=== PATIENT | male | born 1965 | race Caucasian/White ===

== ENCOUNTER 2023-07-30 09:08 | Inpatient (IN) | payer OTHER ==
[~2023-07-30] VITALS: Ht 172.7 cm; Wt 80.7 kg
[2023-07-30 09:24] VITALS: BP 163/104; PULSE 100; RESP 20; TEMP 98.1; O2SAT 99
[2023-07-30 11:18] LABS: BASOPHILS % (AUTO) 0.5 % (0.0-2.0); EOSINOPHILS # (AUTO) 0.2 K/uL (0-0.4); EOSINOPHILS % (AUTO) 1.4 % (0.0-4.0); HEMATOCRIT 41.5 % (36-52); HEMOGLOBIN 14.7 g/dL (12.0-18.0); LYMPHOCYTES # (AUTO) 2.1 K/uL (2.0-11.5); LYMPHOCYTES % (AUTO) 19.5 % (20.5-51.1); MEAN CORPUSCULAR HEMOGLOBIN 31 pg (27-31); MEAN CORPUSCULAR HGB CONC 36 g/dL (33-37); MONOCYTES # (AUTO) 0.5 K/uL (0.8-1.0); MONOCYTES % (AUTO) 4.7 % (1.7-9.3); NEUTROPHILS # (AUTO) 8.1 K/uL (1.8-7.7); NEUTROPHILS % (AUTO) 73.9 % (42.2-75.2); PLATELET COUNT (AUTO) 171 K/uL (140-450); RED BLOOD CELL COUNT(AUTO) 4.71 MIL/uL (4.20-6.10); RED CELL DISTRIBUTION WIDTH 14.8 % (11.6-13.7); WHITE BLOOD COUNT (AUTO) 10.9 K/uL (4.8-10.8)
[2023-07-30 11:29] LABS: ANION GAP 13.8 (8-16); CALCIUM 9.1 mg/dL (8.5-10.1); CARBON DIOXIDE 24.7 mmol/L (21-32); CHLORIDE 102 mmol/L (98-107); CREATININE 0.8 mg/dL (0.6-1.3); GFR ARICAN-AMERICAN 127 mL/min (>90); GFR NON ARICAN-AMERICAN 105 mL/min (>90); GLUCOSE 101 mg/dL (74-106); POTASSIUM 3.5 mmol/L (3.5-5.1); SODIUM SERUM 137 mmol/L (136-145); UREA NITROGEN, BLOOD 12 mg/dL (7-18)
[2023-07-30 11:38] LABS: ALANINE AMINOTRANSFERASE 55 U/L (12-78); ALBUMIN 3.7 g/dL (3.4-5.0); ALKALINE PHOSPHATASE 107 U/L (50-136); ASPARTATE AMINOTRANSFERASE 19 U/L (15-37); TOTAL BILIRUBIN 0.4 mg/dL (0.0-1.0); TOTAL PROTEIN, SERUM 7.3 g/dL (6.4-8.2)
[2023-07-30] MEDS: MECLIZINE 25 MG TAB PO ONE (12:45)
[2023-07-30] MEDS: MORPHINE SULFATE 4 MG/ML SYR IM ONE (13:59)
[2023-07-30] MEDS: LIDOCAINE 5% 1 EA PATCH TP ONE (14:00)
[2023-07-30] MEDS ORDERED: ALBUTEROL 0.083% 2.5 MG/3 ML NEBU INH PRN (16:50)
[2023-07-30] MEDS ORDERED: ONDANSETRON 4 MG/2 ML VIAL IVP PRN (16:50)
[2023-07-30] MEDS: NACL 0.9% 1,000 ML IV SCH (17:17)
[2023-07-30 20:30] VITALS: O2SAT 98
[2023-07-30] MEDS: MORPHINE SULFATE 2 MG/ML SYR IVP PRN (20:56)
[2023-07-31] VITALS: BP 105/72; PULSE 66; RESP 17; TEMP 97.7; O2SAT 97
[2023-07-31 04:00] VITALS: BP 108/70; PULSE 67; PULSE 73; RESP 17; TEMP 97.8; O2SAT 98
[2023-07-31 05:20] LABS: BASOPHILS # (AUTO) 0.1 K/uL (0.00-0.22); BASOPHILS % (AUTO) 0.7 % (0.0-2.0); EOSINOPHILS # (AUTO) 0.3 K/uL (0-0.4); HEMATOCRIT 39.1 % (36-52); HEMOGLOBIN 13.6 g/dL (12.0-18.0); LYMPHOCYTES # (AUTO) 2.5 K/uL (2.0-11.5); LYMPHOCYTES % (AUTO) 31.7 % (20.5-51.1); MEAN CORPUSCULAR HEMOGLOBIN 31 pg (27-31); MEAN CORPUSCULAR HGB CONC 35 g/dL (33-37); MONOCYTES # (AUTO) 0.4 K/uL (0.8-1.0); MONOCYTES % (AUTO) 5.6 % (1.7-9.3); NEUTROPHILS # (AUTO) 4.5 K/uL (1.8-7.7); PLATELET COUNT (AUTO) 165 K/uL (140-450); WHITE BLOOD COUNT (AUTO) 7.8 K/uL (4.8-10.8)
[2023-07-31 05:22] LABS: CALCIUM 8.9 mg/dL (8.5-10.1); CARBON DIOXIDE 29.1 mmol/L (21-32); CREATININE 1.1 mg/dL (0.6-1.3); POTASSIUM 4.1 mmol/L (3.5-5.1)
[2023-07-31 08:00] VITALS: BP 115/74; PULSE 65; PULSE 78; RESP 18; TEMP 98.3; O2SAT 94; O2SAT 98
[2023-07-31 12:00] VITALS: BP 111/75; PULSE 74; PULSE 75; RESP 18; TEMP 98.1; O2SAT 96
[2023-07-31] MEDS: TOPIRAMATE 25 MG TAB PO SCH (12:49)
[2023-07-31 16:00] VITALS: BP 108/76; PULSE 76; PULSE 79; RESP 18; TEMP 98.2; O2SAT 95
[2023-07-31 18:17] LABS: AMPHETAMINE, URINE NEGATIVE ng/ml (NEG <=1000); BARBITURATE, URINE NEGATIVE ng/ml (NEG <=200); BENZODIAZEPINE, URINE NEGATIVE ng/mL (NEG <=200); CANNABINOID, URINE NEGATIVE ng/mL (NEG <=50); COCAINE, URINE NEGATIVE ng/mL (NEG <=300); OPIATE, URINE POSITIVE ng/mL (NEG <=2000); PHENCYCLIDINE SCREEN,URINE NEGATIVE ng/mL (NEG <=25)
[2023-07-31 20:00] VITALS: BP 110/67; PULSE 67; PULSE 71; RESP 18; TEMP 98; O2SAT 97
[2023-07-31] MEDS: QUEtiapine FUMARATE 100 MG TAB PO SCH (20:47)
[2023-08-01] VITALS (7 sets, daily range): BP systolic 94–114; BP diastolic 51–71; PULSE 62–85; RESP 16–18; TEMP 96.9–97.9; O2SAT 96–97
[2023-08-01] MEDS ORDERED: TOP25 PO (10:15)
[2023-08-01] MEDS ORDERED: QUET100T44 PO (10:16)
[2023-08-02] VITALS (9 sets, daily range): BP systolic 92–120; BP diastolic 59–77; PULSE 63–94; RESP 16–18; TEMP 96.9–97; O2SAT 94–100
[2023-08-02] MEDS: HYDROcodone/APAP 5/325 MG 1 TAB TAB PO PRN (09:19)
[2023-08-03 08:00] VITALS: BP 107/65; PULSE 71; PULSE 78; RESP 17; RESP 18; TEMP 98.1; O2SAT 94; O2SAT 99
[2023-08-03 16:00] VITALS: BP 107/65; PULSE 71; RESP 17; TEMP 98.1; O2SAT 99
[2023-08-03 20:00] VITALS: BP 110/62; PULSE 71; RESP 17; TEMP 97.2; O2SAT 95
[2023-08-03] MEDS ORDERED: CIPROFLOXACIN 400 MG/200 ML IV ONE (21:54)
[2023-08-03] MEDS ORDERED: [UNRECOGNIZED DRUG - OTHER] IV ONE (21:54)
[2023-08-04] VITALS (7 sets, daily range): BP systolic 95–100; BP diastolic 60–67; PULSE 62–75; RESP 16–19; TEMP 97.4–99.6; O2SAT 96–98
[2023-08-04] MEDS: LORazepam 2 MG/ML VIAL IVP PRN (23:42)
[2023-08-05] VITALS (8 sets, daily range): BP systolic 101–113; BP diastolic 66–97; PULSE 65–72; RESP 18–19; TEMP 97.2–97.8; O2SAT 95–99
[2023-08-06] VITALS (9 sets, daily range): BP systolic 110–149; BP diastolic 63–82; PULSE 72–89; RESP 18; TEMP 97.2–97.8; O2SAT 96–100
[2023-08-06] MEDS ORDERED: TOP25 PO (10:04)
[2023-08-07] VITALS (8 sets, daily range): BP systolic 101–121; BP diastolic 65–76; PULSE 67–71; RESP 1–19; TEMP 92.3–97.5; O2SAT 95–99
[2023-08-07] MEDS: MORPHINE SULFATE 2 MG/ML SYR ONE (09:34)
[2023-08-07] MEDS: ACETAMINOPHEN 325 MG TAB PO PRN (21:43)
[2023-08-08 04:00] VITALS: BP 103/54; PULSE 61; RESP 1; TEMP 97.5; O2SAT 98
[2023-08-08 05:48] LABS: BASOPHILS % (AUTO) 0.8 % (0.0-2.0); EOSINOPHILS # (AUTO) 0.4 K/uL (0-0.4); EOSINOPHILS % (AUTO) 7.1 % (0.0-4.0); HEMATOCRIT 39.4 % (36-52); HEMOGLOBIN 13.9 g/dL (12.0-18.0); LYMPHOCYTES # (AUTO) 2.1 K/uL (2.0-11.5); LYMPHOCYTES % (AUTO) 36.6 % (20.5-51.1); MEAN CORPUSCULAR HEMOGLOBIN 31 pg (27-31); MEAN CORPUSCULAR HGB CONC 35 g/dL (33-37); MEAN CORPUSCULAR VOLUME 87.9 fL (80-94); MONOCYTES # (AUTO) 0.4 K/uL (0.8-1.0); MONOCYTES % (AUTO) 6.8 % (1.7-9.3); NEUTROPHILS # (AUTO) 2.8 K/uL (1.8-7.7); NEUTROPHILS % (AUTO) 48.7 % (42.2-75.2); PLATELET COUNT (AUTO) 142 K/uL (140-450); RED BLOOD CELL COUNT(AUTO) 4.48 MIL/uL (4.20-6.10); RED CELL DISTRIBUTION WIDTH 14.7 % (11.6-13.7); WHITE BLOOD COUNT (AUTO) 5.7 K/uL (4.8-10.8)
[2023-08-08 06:51] LABS: ALBUMIN 3.2 g/dL (3.4-5.0); ANION GAP 14.1 (8-16); CALCIUM 8.7 mg/dL (8.5-10.1); CARBON DIOXIDE 21.6 mmol/L (21-32); CREATININE 1.1 mg/dL (0.6-1.3); POTASSIUM 3.7 mmol/L (3.5-5.1); TOTAL BILIRUBIN 0.3 mg/dL (0.0-1.0); TOTAL PROTEIN, SERUM 6.4 g/dL (6.4-8.2)
[2023-08-08 08:00] VITALS: BP 111/75; PULSE 64; PULSE 68; RESP 1; RESP 20; TEMP 97.3; O2SAT 99
[2023-08-08 08:11] VITALS: O2SAT 97
[2023-08-08] MEDS: FAMOTIDINE 20 MG TAB PO SCH (11:59)
[2023-08-08 16:00] VITALS: BP 112/74; PULSE 64; RESP 1; TEMP 97.5; O2SAT 98
[2023-08-08 20:00] VITALS: BP 101/56; PULSE 70; RESP 1; RESP 18; TEMP 97.6; O2SAT 98
[2023-08-09 04:00] VITALS: BP 122/72; PULSE 70; RESP 1; TEMP 96.8; O2SAT 97
[2023-08-09 08:00] VITALS: BP 102/62; PULSE 63; RESP 1; TEMP 97.2; O2SAT 99
[2023-08-09 08:17] VITALS: PULSE 68; RESP 20; O2SAT 99
[2023-08-09 14:22] VITALS: BP 125/65; PULSE 68; RESP 20; TEMP 97.1
[2023-08-09 16:00] VITALS: BP 122/70; PULSE 64; RESP 1; TEMP 97.9; O2SAT 64
[2023-08-09 20:00] VITALS: PULSE 68; RESP 18; O2SAT 99
[2023-08-10] VITALS: BP 107/64; PULSE 61; RESP 18; TEMP 98.2; O2SAT 97
[2023-08-10 08:00] VITALS: BP 101/71; PULSE 66; RESP 18; TEMP 97.3; O2SAT 99
[2023-08-10 15:01] VITALS: PULSE 66; RESP 18; O2SAT 99
[2023-08-10 15:08] VITALS: BP 101/71; PULSE 66; RESP 18; TEMP 97.3
== END 2023-08-10 18:00 | DRG 74 ==
LOC: MED 09:08 → MTU 16:59
PROVIDERS: ADMIT Family Medicine; ATTEND Family Medicine
DX: G90.8 Other disorders of autonomic nervous system (principal); K56.7 Ileus, unspecified; S30.1XXA Contusion of abdominal wall, initial encounter; M47.815 Spondylosis without myelopathy or radiculopathy, thoracolumbar region; S09.8XXA Other specified injuries of head, initial encounter; F31.9 Bipolar disorder, unspecified; M47.895 Other spondylosis, thoracolumbar region; R16.0 Hepatomegaly, not elsewhere classified; I70.8 Atherosclerosis of other arteries; G43.909 Migraine, unspecified, not intractable, without status migrainosus; Z86.73 Personal history of transient ischemic attack (TIA), and cerebral infarction without residual deficits; Z79.899 Other long term (current) drug therapy; Z88.8 Allergy status to other drugs, medicaments and biological substances; W18.39XA Other fall on same level, initial encounter; Y93.89 Activity, other specified; Y92.89 Other specified places as the place of occurrence of the external cause; Y99.8 Other external cause status
CPT/HCPCS: 36415; 70450; 71045; 72131; 80048; 80053; 80305; 84484; 85025; 87081; 93005; 96372; 97110; 97116; 97163-GP; 97530; 99285; G0482; J0744; J2060; J2270; J8597; Q9967